=== PATIENT | female | born 1995 | race Two or more races ===

== ENCOUNTER 2021-02-18 10:00 | Inpatient (IN) | payer OTHER ==
[~2021-02-18] VITALS: Ht 162.6 cm; Wt 72.6 kg
[2021-02-22] MEDS ORDERED: IRON325 MG PO (13:33)
[2021-02-22] MEDS ORDERED: LOW-OGESTREL-21 EACH PO (13:33)
== END 2021-02-22 13:47 | disposition home or self-care (01) | DRG 760 ==
LOC: ER 10:00 → OB/GYN 23:21
PROVIDERS: ADMIT Obstetrics & Gynecology; ATTEND Obstetrics & Gynecology
PROC: 30233N1 Transfusion of Nonautologous Red Blood Cells into Peripheral Vein, Percutaneous Approach (ICD-10-PCS; principal; 2021-02-18)
DX: N93.8 Other specified abnormal uterine and vaginal bleeding (principal); D62 Acute posthemorrhagic anemia; N17.8 Other acute kidney failure; Z20.822 Contact with and (suspected) exposure to COVID-19; E03.9 Hypothyroidism, unspecified

== ENCOUNTER 2021-03-01 04:36 | Emergency (ER) | payer OTHER ==
[~2021-03-01] VITALS: Ht 162.6 cm; Wt 72.6 kg
[~2021-03-01 04:36] MED LIST: IRON325 MG PO; LOW-OGESTREL-21 EACH PO
[2021-03-01] MEDS ORDERED: SYNTHROID125 MCG (04:48)
[2021-03-02] MEDS ORDERED: PHENAZOPYRIDIN200 MG PO (00:08)
[2021-03-02] MEDS ORDERED: ULTRAM50 MG PO (00:08)
[2021-03-02] MEDS ORDERED: SULFAMETHOXAZO1 EACH PO (00:08)
[2021-03-02] MEDS ORDERED: KETO10TA2 PO (00:09)
== END 2021-03-01 10:36 | disposition home or self-care (01) ==
LOC: ER 04:36
DX: N39.0 Urinary tract infection, site not specified (principal); N20.1 Calculus of ureter; R10.31 Right lower quadrant pain

== ENCOUNTER 2021-03-01 23:34 | Emergency (ER) | payer OTHER ==
[~2021-03-01] VITALS: Ht 162.6 cm; Wt 72.6 kg
[~2021-03-01 23:34] MED LIST changes: +SYNTHROID125 MCG
[2021-03-02] MEDS ORDERED: ULTRAM50 MG PO (00:08)
[2021-03-02] MEDS ORDERED: SULFAMETHOXAZO1 EACH PO (00:08)
[2021-03-02] MEDS ORDERED: PHENAZOPYRIDIN200 MG PO (00:08)
[2021-03-02] MEDS ORDERED: KETO10TA2 PO (00:09)
== END 2021-03-02 04:26 | disposition home or self-care (01) ==
LOC: ER 23:34
DX: R11.2 Nausea with vomiting, unspecified (principal); R10.84 Generalized abdominal pain